=== PATIENT | male | born 1975 | race Caucasian/White ===

== ENCOUNTER 2018-11-16 15:38 | Emergency (ER) | payer OTHER ==
[~2018-11-16] VITALS: Ht 170.2 cm; Wt 100.0 kg
[2018-11-16 15:41] VITALS: BP 146/80
[2018-11-16] MEDS ORDERED: METOCLOPRAMIDE HCL 10MG/2ML VIAL IV ONE (16:30)
[2018-11-16] MEDS ORDERED: DEXT 5%/0.45% NACL 500ML 500 ML IV ONE (16:45)
[2018-11-16 17:03] LABS: BASOPHILS % 0.7 % (0.0-2.0); EOSINOPHILS % 0.3 % (0.0-5.0); HEMATOCRIT. 40.9 % (42.0-52.0); LYMPHOCYTES % 16.8 % (20.0-50.0); MEAN CORPUSCULAR HEMOGLOBIN 30.8 pg (28.0-32.0); MEAN CORPUSCULAR VOLUME 90.2 fL (80.0-94.0); MEAN PLATELET VOLUME 7.9 fl (7.4-10.4); MONOCYTES % 7.6 % (2.0-8.0); NEUTROPHILS % 74.6 % (40.0-76.0); PLATELET 315 x1000/uL (130-400); RED BLOOD CELL COUNT 4.54 mill/uL (4.7-6.1); RED CELL DISTRIBUTION WIDTH 13.6 % (11.6-14.6)
[2018-11-16 17:08] LABS: CHLORIDE 107 mEq/L (98-107)
[2018-11-16 17:15] LABS: LDL CHOLESTEROL 102 mg/dL (5-100)
[2018-11-16 17:16] LABS: HDL CHOLESTEROL 41 mg/dL (40-59)
[2018-11-16 17:17] LABS: CREATINE KINASE 91 IU/L (39-308)
[2018-11-16 17:20] LABS: CREATINE KINASE MB FRACTION < 1.0 ng/mL (0.5-3.6)
== END 2018-11-16 18:34 | disposition home or self-care (01) ==
LOC: ER 15:38
DX: I10 Essential (primary) hypertension (principal); G44.89 Other headache syndrome; R53.81 Other malaise; R53.1 Weakness; R00.2 Palpitations; E78.00 Pure hypercholesterolemia, unspecified
CPT/HCPCS: 36415; 71046; 80061; 82550; 82553; 84443; 84484; 99284